=== PATIENT | female | born 1950 | race Caucasian/White ===

== ENCOUNTER 2016-05-14 06:35 | Inpatient (IN) | payer OTHER ==
[~2016-05-14] VITALS: Ht 160 cm; Wt 44.0 kg
[2016-05-14] MEDS ORDERED: IPRATRPIUM/ALBUTEROL 0.5/2.5MG 3 ML NEBU. NEB ONE (07:30)
[2016-05-14] MEDS ORDERED: LEVOFLOXACIN 500 MG TABLET PO ONE (07:30)
[2016-05-14] MEDS ORDERED: methylPREDNISolone SOD SUCC PF 125 MG/2 ML VIAL. IV ONE (07:30)
[2016-05-14] MEDS ORDERED: IV NORMAL SALINE 500ML BAG 500 ML IV ONE (07:30)
[2016-05-14 07:41] LABS: BASO % 1 % (0-3); EOS % 0 % (0-3); HEMATOCRIT 45.4 % (36.0-47.0); HEMOGLOBIN 15.4 g/dL (12.0-15.5); LYMPH % 11 % (24-48); MEAN CORPUSCULAR HEMOGLOBIN 30 pg (25-35); MEAN CORPUSCULAR HGB CONC 34 g/dL (31-37); MEAN CORPUSCULAR VOLUME 89 fL (79-100); MONO % 10 % (0-9); NEUT % 79 % (31-73); PLATELET COUNT 374 x10^3/uL (140-400); RED BLOOD COUNT 5.08 x10^6/uL (3.50-5.40); RED CELL DISTRIBUTION WIDTH 13.2 % (11.5-14.5); WHITE BLOOD COUNT 9.5 x10^3/uL (4.0-11.0)
--- NOTE | 2016-05-14 07:59 | EKG ---
[facility] [address] [place] [address] Test Date: 2016-05-14 Test Time: 07:37:38 Pat Name: REJI NORRIS Department: Room: Gender: F [employer] Supervisor: : 1950 Requested By: KAELYN MOORE Order Number: [id number] Reading MD: Measurements Intervals [place] Rate: 93 P: 64 DE: 136 QRS: 64 QRSD: 84 T: 81 QT: 340 QTc: 425 Interpretive Statements SINUS RHYTHM LEFT ATRIAL ABNORMALITY ABNORMAL ECG RI6.01 No previous ECG available for comparison
--- NOTE | 2016-05-14 08:00 | RAD ---
Portable chest, 05/14/2016: History: Cough, shortness of breath The heart size is relatively small. The lungs appear to be hyperexpanded. COPD is suspected. No acute infiltrate is seen. There is no evidence of pleural fluid. IMPRESSION: No acute cardiopulmonary abnormality is detected.
[2016-05-14 08:15] LABS: CALCIUM 8.9 mg/dL (8.5-10.1); CREATININE 0.5 mg/dL (0.6-1.0); GFR 123.8; POTASSIUM 3.7 mmol/L (3.5-5.1)
[2016-05-14 08:20] LABS: ALBUMIN 3.6 g/dL (3.4-5.0); ALBUMIN/GLOBULIN RATIO 1.2 (1.0-1.7); TOTAL BILIRUBIN 0.2 mg/dL (0.2-1.0); TOTAL PROTEIN 6.7 g/dL (6.4-8.2)
[2016-05-14 08:23] LABS: OBC FLU VALID
[2016-05-14] MEDS ORDERED: OSEL75CA PO (08:35)
--- NOTE | 2016-05-14 08:35 | PHYS DOC ---
Past Medical History Past Medical History: COPD, Depression, Diverticulitis, Hypertension Past Surgical History: Appendectomy, Colectomy, Hysterectomy, Oophorectomy Alcohol Use: None Drug Use: None Adult General Chief Complaint Chief Complaint: SHORTNESS OF BREATH HPI HPI 66-year-old female with history of COPD presents with several day history of cough congestion and body aches fever chills decreased energy and decreased by mouth intake. She has been using her medication at home without any improvement. She states it feels very much like she has bronchitis. She states the cough is largely been unproductive and denies any hemoptysis. [] Review of Systems Review of Systems Constitutional: Denies fever or chills [] Eyes: Denies change in visual acuity, redness, or eye pain [] HENT: Denies nasal congestion or sore throat [] Respiratory: Per history of present illness [] Cardiovascular: No additional information not addressed in HPI [] GI: Denies abdominal pain, nausea, vomiting, bloody stools or diarrhea [] : Denies dysuria or hematuria [] Musculoskeletal: Denies back pain or joint pain [] Integument: Denies rash or skin lesions [] Neurologic: Denies headache, focal weakness or sensory changes [] Endocrine: Denies polyuria or polydipsia [] Current Medications Current Medications Current Medications Medications (Trade) Dose Ordered Sig/Rocky Start Time Stop Time Status Last Admin Dose Admin Albuterol/ Ipratropium (Duoneb) 6 ml 1X ONCE 05/14/16 07:30 05/14/16 07:31 DC 05/14/16 07:38 6 ML Levofloxacin 500 mg 500 mg 1X ONCE 05/14/16 07:30 05/14/16 07:31 DC 05/14/16 07:56 500 MG Methylprednisolone Sodium Succinate (Solu-Medrol 125mg Vial) 125 mg 1X ONCE 05/14/16 07:30 05/14/16 07:31 DC 05/14/16 07:54 125 MG Sodium Chloride (Iv Sodium Chloride 0.9% 500ml Bag) 500 ml @ 0 mls/hr 1X ONCE 05/14/16 07:30 05/14/16 07:31 DC 05/14/16 07:40 500 MLS/HR Sodium Chloride (Iv Sodium Chloride 0.9% 1000ml Bag) 1,000 ml @ 125 mls/hr Q8H 05/14/16 08:52 05/15/16 08:51 05/14/16 10:49 125 MLS/HR Allergies Allergies Allergies Coded Allergies Type Severity Reaction Last Updated Verified Penicillins Allergy Severe 05/14/16 Yes morphine Adverse Reaction Intermediate vomiting 05/14/16 Yes Physical Exam Physical Exam Constitutional: Well developed, well nourished, no acute distress, appears acutely ill. [] HENT: Normocephalic, atraumatic, bilateral external ears normal, oropharynx moist, no oral exudates, nose normal. [] Eyes: PERRLA, EOMI, conjunctiva normal, no discharge. [] Neck: Normal range of motion, no tenderness, supple, no stridor. [] Cardiovascular:Heart rate regular rhythm, no murmur [] Lungs & Thorax: Scattered wheezes throughout both lungs no rales good air movement otherwise [] Abdomen: Bowel sounds normal, soft, no tenderness, no masses, no pulsatile masses. [] Skin: Warm, dry, no erythema, no rash. [] Back: No tenderness, no CVA tenderness. [] Extremities: No tenderness, no cyanosis, no clubbing, ROM intact, no edema. [] Neurologic: Alert and oriented X 3, normal motor function, normal sensory function, no focal deficits noted. [] Psychologic: Affect normal, judgement normal, mood normal. [] Current Patient Data Vital Signs Vital Signs Date Time Temp Pulse Resp B/P Pulse Ox O2 Delivery O2 Flow Rate FiO2 05/14/16 08:44 98 25 123/60 97 Nasal Cannula 2 05/14/16 06:35 97.6 97.6 Lab Values Laboratory Tests Test 05/14/16 06:45 05/14/16 07:41 05/14/16 07:59 White Blood Count 9.5x10^3/uL (4.0-11.0) Red Blood Count 5.08x10^6/uL (3.50-5.40) Hemoglobin 15.4g/dL (12.0-15.5) Hematocrit 45.4% (36.0-47.0) Mean Corpuscular Volume 89fL (79-100) Mean Corpuscular Hemoglobin 30pg (25-35) Mean Corpuscular Hemoglobin Concent 34g/dL (31-37) Red Cell Distribution Width 13.2% (11.5-14.5) Platelet Count 374x10^3/uL (140-400) Neutrophils (%) (Auto) 79% (31-73) H Lymphocytes (%) (Auto) 11% (24-48) L Monocytes (%) (Auto) 10% (0-9) H Eosinophils (%) (Auto) 0% (0-3) Basophils (%) (Auto) 1% (0-3) Neutrophils # (Auto) 7.5x10^3uL (1.8-7.7) Lymphocytes # (Auto) 1.0x10^3/uL (1.0-4.8) Monocytes # (Auto) 1.0x10^3/uL (0.0-1.1) Eosinophils # (Auto) 0.0x10^3/uL (0.0-0.7) Basophils # (Auto) 0.0x10^3/uL (0.0-0.2) Influenza Type A Antigen Positive (NEGATIVE) Influenza Type B Antigen Negative (NEGATIVE) Sodium Level 138mmol/L (136-145) Potassium Level 3.7mmol/L (3.5-5.1) Chloride Level 100mmol/L (98-107) Carbon Dioxide Level 25mmol/L (21-32) Anion Gap 13 (6-14) Blood Urea Nitrogen 21mg/dL (7-20) H Creatinine 0.5mg/dL (0.6-1.0) L Estimated GFR (Cockcroft-Gault) 123.8 BUN/Creatinine Ratio 42 (6-20) H Glucose Level 128mg/dL (70-99) H Calcium Level 8.9mg/dL (8.5-10.1) Total Bilirubin 0.2mg/dL (0.2-1.0) Aspartate Amino Transferase (AST) 29U/L (15-37) Alanine Aminotransferase (ALT) 32U/L (14-59) Alkaline Phosphatase 123U/L (46-116) H Troponin I Quantitative < 0.017ng/mL (0.000-0.055) NG-Gtj-M-Type Natriuretic Peptide 104pg/mL (0-124) Total Protein 6.7g/dL (6.4-8.2) Albumin 3.6g/dL (3.4-5.0) Albumin/Globulin Ratio 1.2 (1.0-1.7) Laboratory Tests 05/14/16 06:45 Laboratory Tests 05/14/16 07:59 EKG EKG EKG: Normal sinus rhythm rate of [address]-T changes [] Radiology/Procedures Radiology/Procedures [] Impressions: PROCEDURE: CHEST AP ONLY Portable chest, 05/14/2016: History: Cough, shortness of breath The heart size is relatively small. The lungs appear to be hyperexpanded. COPD is suspected. No acute infiltrate is seen. There is no evidence of pleural fluid. IMPRESSION: No acute cardiopulmonary abnormality is detected. Course & Med Decision Making Course & Med Decision Making Pertinent Labs and Imaging studies reviewed. (See chart for details) [ED course: Evaluation reveals 66-year-old female with history of COPD who had some wheezing. She was given IV fluids [id number] DuoNeb treatments 125 Solu- Medrol and 500 of Levaquin by mouth. It was noted that her chest x-ray was clear and she was influenza A positive. I will go ahead and start the patient on Tamiflu. I feel she is improved enough at this point to go home. We try to get the patient up and around she became very short of breath and hypoxic. At this time it was determined that the patient would be best suited for hospitalization for [id number] nebulizer breathing treatments and IV steroids. Patient is in agreement with this plan.] Dragon Disclaimer Dragon Disclaimer This electronic medical record was generated, in whole or in part, using a voice recognition dictation system. Departure Departure Impression: Primary Impression: Influenza A Additional Impression: COPD exacerbation Disposition: ADMITTED INPATIENT Admitting Physician: Samara Muir Condition: IMPROVED Referrals: EDGAR GRIGGS MD (PCP) Patient Instructions: Influenza A (H1N1) Additional Instructions: Please follow with your family doctor in the next few days for recheck. Return to the emergency department with any new or concerning symptoms. Please take medications as directed Scripts Oseltamivir Phosphate (Tamiflu)75 Mg Capsule1 Cap PO BID influenza #10 CAP Prov:KAELYN MOORE DO 05/14/16 Problem Qualifiers KAELYN MOORE DO May 14, 2016 08:35
[2016-05-14] MEDS ORDERED: ONDANSETRON PF 4 MG/2 ML VIAL. IV PRN ×2 (09:00→16:30)
--- NOTE | 2016-05-14 09:45 | PDOC ---
PULMONARY PROGRESS NOTES Vitals Vital Signs Date Time Temp Pulse Resp B/P Pulse Ox O2 Delivery O2 Flow Rate FiO2 05/14/16 08:44 98 25 123/60 97 Nasal Cannula 2 05/14/16 06:35 97.6 97.6 Labs Laboratory Tests Test 05/14/16 06:45 05/14/16 07:41 05/14/16 07:59 White Blood Count 9.5x10^3/uL (4.0-11.0) Red Blood Count 5.08x10^6/uL (3.50-5.40) Hemoglobin 15.4g/dL (12.0-15.5) Hematocrit 45.4% (36.0-47.0) Mean Corpuscular Volume 89fL (79-100) Mean Corpuscular Hemoglobin 30pg (25-35) Mean Corpuscular Hemoglobin Concent 34g/dL (31-37) Red Cell Distribution Width 13.2% (11.5-14.5) Platelet Count 374x10^3/uL (140-400) Neutrophils (%) (Auto) 79% (31-73) Lymphocytes (%) (Auto) 11% (24-48) Monocytes (%) (Auto) 10% (0-9) Eosinophils (%) (Auto) 0% (0-3) Basophils (%) (Auto) 1% (0-3) Neutrophils # (Auto) 7.5x10^3uL (1.8-7.7) Lymphocytes # (Auto) 1.0x10^3/uL (1.0-4.8) Monocytes # (Auto) 1.0x10^3/uL (0.0-1.1) Eosinophils # (Auto) 0.0x10^3/uL (0.0-0.7) Basophils # (Auto) 0.0x10^3/uL (0.0-0.2) Influenza Type A Antigen Positive (NEGATIVE) Influenza Type B Antigen Negative (NEGATIVE) Sodium Level 138mmol/L (136-145) Potassium Level 3.7mmol/L (3.5-5.1) Chloride Level 100mmol/L (98-107) Carbon Dioxide Level 25mmol/L (21-32) Anion Gap 13 (6-14) Blood Urea Nitrogen 21mg/dL (7-20) Creatinine 0.5mg/dL (0.6-1.0) Estimated GFR (Cockcroft-Gault) 123.8 BUN/Creatinine Ratio 42 (6-20) Glucose Level 128mg/dL (70-99) Calcium Level 8.9mg/dL (8.5-10.1) Total Bilirubin 0.2mg/dL (0.2-1.0) Aspartate Amino Transf (AST/SGOT) 29U/L (15-37) Alanine Aminotransferase (ALT/SGPT) 32U/L (14-59) Alkaline Phosphatase 123U/L (46-116) Troponin I Quantitative < 0.017ng/mL (0.000-0.055) ER-Eol-L-Type Natriuretic Peptide 104pg/mL (0-124) Total Protein 6.7g/dL (6.4-8.2) Albumin 3.6g/dL (3.4-5.0) Albumin/Globulin Ratio 1.2 (1.0-1.7) Laboratory Tests Test 05/14/16 06:45 05/14/16 07:41 05/14/16 07:59 White Blood Count 9.5x10^3/uL (4.0-11.0) Red Blood Count 5.08x10^6/uL (3.50-5.40) Hemoglobin 15.4g/dL (12.0-15.5) Hematocrit 45.4% (36.0-47.0) Mean Corpuscular Volume 89fL (79-100) Mean Corpuscular Hemoglobin 30pg (25-35) Mean Corpuscular Hemoglobin Concent 34g/dL (31-37) Red Cell Distribution Width 13.2% (11.5-14.5) Platelet Count 374x10^3/uL (140-400) Neutrophils (%) (Auto) 79% (31-73) Lymphocytes (%) (Auto) 11% (24-48) Monocytes (%) (Auto) 10% (0-9) Eosinophils (%) (Auto) 0% (0-3) Basophils (%) (Auto) 1% (0-3) Neutrophils # (Auto) 7.5x10^3uL (1.8-7.7) Lymphocytes # (Auto) 1.0x10^3/uL (1.0-4.8) Monocytes # (Auto) 1.0x10^3/uL (0.0-1.1) Eosinophils # (Auto) 0.0x10^3/uL (0.0-0.7) Basophils # (Auto) 0.0x10^3/uL (0.0-0.2) Influenza Type A Antigen Positive (NEGATIVE) Influenza Type B Antigen Negative (NEGATIVE) Sodium Level 138mmol/L (136-145) Potassium Level 3.7mmol/L (3.5-5.1) Chloride Level 100mmol/L (98-107) Carbon Dioxide Level 25mmol/L (21-32) Anion Gap 13 (6-14) Blood Urea Nitrogen 21mg/dL (7-20) Creatinine 0.5mg/dL (0.6-1.0) Estimated GFR (Cockcroft-Gault) 123.8 BUN/Creatinine Ratio 42 (6-20) Glucose Level 128mg/dL (70-99) Calcium Level 8.9mg/dL (8.5-10.1) Total Bilirubin 0.2mg/dL (0.2-1.0) Aspartate Amino Transf (AST/SGOT) 29U/L (15-37) Alanine Aminotransferase (ALT/SGPT) 32U/L (14-59) Alkaline Phosphatase 123U/L (46-116) Troponin I Quantitative < 0.017ng/mL (0.000-0.055) YM-Hxn-J-Type Natriuretic Peptide 104pg/mL (0-124) Total Protein 6.7g/dL (6.4-8.2) Albumin 3.6g/dL (3.4-5.0) Albumin/Globulin Ratio 1.2 (1.0-1.7) Medications Active Scripts Medications Dose Route/Sig Days Date Category Tamiflu (Oseltamivir Phosphate) 75 Mg Capsule 1 Cap PO BID 05/14/16 Rx Impression . [id number] agree wtih current rx see oders influenza resp failure thanks SIDNEY BAKER MD May 14, 2016 09:45
[2016-05-14] MEDS ORDERED: VENL37.5 PO (10:05)
[2016-05-14] MEDS ORDERED: LISI10TA2 PO (10:05)
[2016-05-14] MEDS: IV NORMAL SALINE 1000ML BAG 1,000 ML IV SCH ×2 (10:49→16:28)
[2016-05-14] MEDS: IPRATRPIUM/ALBUTEROL 0.5/2.5MG 3 ML NEBU. NEB SCH ×3 (11:11→21:23)
[2016-05-14 13:30] VITALS: BP 151/79
[2016-05-14 13:58] VITALS: BP 151/79
[2016-05-14 15:00] VITALS: BP 151/79
[2016-05-14] MEDS: ACETAMINOPHEN 325 MG TABLET. PO PRN (16:10)
--- NOTE | 2016-05-14 16:25 | PDOC1 ---
History and Physical Date of Admission Date of Admission 05/14/16 Identification/Chief Complaint Chief Complaint sob Problems: Source Source: Chart review, Patient History of Present Illness History of Present Illness HPI HPI 66-year-old female with history of COPD, no home o2, comes for sob Pt has been coughing, sob, body ache, fever, chills, for 1 week. didnot get flu shot. +FLU A in ER. 1PPD Past Medical History Past Medical History copd , htn Past Surgical History Past Surgical History : Appendectomy, Colectomy, Hysterectomy, Oophorectomy Family History Family History: No Significant Social History Smoke: 1 pack per day ALCOHOL: social Drugs: None Current Problem List Problem List Problems Medical Problems: (1) COPD exacerbation Status: Acute (2) CVA (cerebral vascular accident) Status: Acute (3) Influenza A Status: Acute Current Medications Current Medications Current Medications Medications (Trade) Dose Ordered Sig/Rocky Start Time Stop Time Status Last Admin Dose Admin Acetaminophen (Tylenol) 650 mg PRN Q6HRS PRN 05/14/16 16:00 05/14/16 16:10 650 MG Albuterol/ Ipratropium (Duoneb) 3 ml RTQID 05/14/16 12:00 05/15/16 11:59 05/14/16 15:36 3 ML Levofloxacin (Levaquin) 500 mg 1X ONCE 05/14/16 07:30 05/14/16 07:31 DC 05/14/16 07:56 500 MG Methylprednisolone Sodium Succinate (Solu-Medrol 125mg Vial) 125 mg 1X ONCE 05/14/16 07:30 05/14/16 07:31 DC 05/14/16 07:54 125 MG Ondansetron HCl 4 mg 4 mg PRN Q8HRS PRN 05/14/16 09:00 05/15/16 08:59 Sodium Chloride (Iv Sodium Chloride 0.9% 500ml Bag) 500 ml @ 0 mls/hr 1X ONCE 05/14/16 07:30 05/14/16 07:31 DC 05/14/16 07:40 500 MLS/HR Sodium Chloride (Iv Sodium Chloride 0.9% 1000ml Bag) 1,000 ml @ 125 mls/hr Q8H 05/14/16 08:52 05/15/16 08:51 05/14/16 10:49 125 MLS/HR Allergies Allergies Allergies Coded Allergies Type Severity Reaction Last Updated Verified Penicillins Allergy Severe 05/14/16 Yes morphine Adverse Reaction Intermediate vomiting 05/14/16 Yes ROS Review of System CONSTITUTIONAL: No fever or chills EYES: No recent changes SKIN: No rash or itching CARDIOVASCULAR: No chest pain, syncope, palpitations, or edema RESPIRATORY: No SOB or cough GASTROINTESTINAL: No nausea, vomiting or abdominal pain NEUROLOGICAL: No headaches or weakness ENDOCRINE: No cold or heat intolerance GENITOURINARY: No urgency or frequency of urination MUSCULOSKELETAL: No back pain or joint pain LYMPHATICS: No enlarged lymph nodes PSYCHIATRIC: No anxiety or depression Physical Exam Physical Exam GEN.: No apparent distress. Alert and oriented. HEENT: Head is normocephalic, atraumatic NECK: Supple. LUNGS: bl mild wheezing HEART: RRR, S1, S2 present. Peripheral pulses intact ABDOMEN: Soft, nontender. Positive bowel sounds. EXTREMITIES: Without any cyanosis. NEUROLOGIC: Normal speech, normal tone PSYCHIATRIC: Normal affect, normal mood. SKIN: No ulcerations Vitals Vitals Vital Signs Date Time Temp Pulse Resp B/P Pulse Ox O2 Delivery O2 Flow Rate FiO2 05/14/16 15:59 Nasal Cannula 2.0 05/14/16 15:00 99.1 98 20 151/79 93 99.1 Labs Labs Laboratory Tests Test 05/14/16 06:45 05/14/16 07:41 05/14/16 07:59 White Blood Count 9.5x10^3/uL (4.0-11.0) Red Blood Count 5.08x10^6/uL (3.50-5.40) Hemoglobin 15.4g/dL (12.0-15.5) Hematocrit 45.4% (36.0-47.0) Mean Corpuscular Volume 89fL (79-100) Mean Corpuscular Hemoglobin 30pg (25-35) Mean Corpuscular Hemoglobin Concent 34g/dL (31-37) Red Cell Distribution Width 13.2% (11.5-14.5) Platelet Count 374x10^3/uL (140-400) Neutrophils (%) (Auto) 79% (31-73) Lymphocytes (%) (Auto) 11% (24-48) Monocytes (%) (Auto) 10% (0-9) Eosinophils (%) (Auto) 0% (0-3) Basophils (%) (Auto) 1% (0-3) Neutrophils # (Auto) 7.5x10^3uL (1.8-7.7) Lymphocytes # (Auto) 1.0x10^3/uL (1.0-4.8) Monocytes # (Auto) 1.0x10^3/uL (0.0-1.1) Eosinophils # (Auto) 0.0x10^3/uL (0.0-0.7) Basophils # (Auto) 0.0x10^3/uL (0.0-0.2) Influenza Type A Antigen Positive (NEGATIVE) Influenza Type B Antigen Negative (NEGATIVE) Sodium Level 138mmol/L (136-145) Potassium Level 3.7mmol/L (3.5-5.1) Chloride Level 100mmol/L (98-107) Carbon Dioxide Level 25mmol/L (21-32) Anion Gap 13 (6-14) Blood Urea Nitrogen 21mg/dL (7-20) Creatinine 0.5mg/dL (0.6-1.0) Estimated GFR (Cockcroft-Gault) 123.8 BUN/Creatinine Ratio 42 (6-20) Glucose Level 128mg/dL (70-99) Calcium Level 8.9mg/dL (8.5-10.1) Total Bilirubin 0.2mg/dL (0.2-1.0) Aspartate Amino Transf (AST/SGOT) 29U/L (15-37) Alanine Aminotransferase (ALT/SGPT) 32U/L (14-59) Alkaline Phosphatase 123U/L (46-116) Troponin I Quantitative < 0.017ng/mL (0.000-0.055) OY-Gkp-K-Type Natriuretic Peptide 104pg/mL (0-124) Total Protein 6.7g/dL (6.4-8.2) Albumin 3.6g/dL (3.4-5.0) Albumin/Globulin Ratio 1.2 (1.0-1.7) Laboratory Tests Test 05/14/16 06:45 05/14/16 07:41 05/14/16 07:59 White Blood Count 9.5x10^3/uL (4.0-11.0) Red Blood Count 5.08x10^6/uL (3.50-5.40) Hemoglobin 15.4g/dL (12.0-15.5) Hematocrit 45.4% (36.0-47.0) Mean Corpuscular Volume 89fL (79-100) Mean Corpuscular Hemoglobin 30pg (25-35) Mean Corpuscular Hemoglobin Concent 34g/dL (31-37) Red Cell Distribution Width 13.2% (11.5-14.5) Platelet Count 374x10^3/uL (140-400) Neutrophils (%) (Auto) 79% (31-73) Lymphocytes (%) (Auto) 11% (24-48) Monocytes (%) (Auto) 10% (0-9) Eosinophils (%) (Auto) 0% (0-3) Basophils (%) (Auto) 1% (0-3) Neutrophils # (Auto) 7.5x10^3uL (1.8-7.7) Lymphocytes # (Auto) 1.0x10^3/uL (1.0-4.8) Monocytes # (Auto) 1.0x10^3/uL (0.0-1.1) Eosinophils # (Auto) 0.0x10^3/uL (0.0-0.7) Basophils # (Auto) 0.0x10^3/uL (0.0-0.2) Influenza Type A Antigen Positive (NEGATIVE) Influenza Type B Antigen Negative (NEGATIVE) Sodium Level 138mmol/L (136-145) Potassium Level 3.7mmol/L (3.5-5.1) Chloride Level 100mmol/L (98-107) Carbon Dioxide Level 25mmol/L (21-32) Anion Gap 13 (6-14) Blood Urea Nitrogen 21mg/dL (7-20) Creatinine 0.5mg/dL (0.6-1.0) Estimated GFR (Cockcroft-Gault) 123.8 BUN/Creatinine Ratio 42 (6-20) Glucose Level 128mg/dL (70-99) Calcium Level 8.9mg/dL (8.5-10.1) Total Bilirubin 0.2mg/dL (0.2-1.0) Aspartate Amino Transf (AST/SGOT) 29U/L (15-37) Alanine Aminotransferase (ALT/SGPT) 32U/L (14-59) Alkaline Phosphatase 123U/L (46-116) Troponin I Quantitative < 0.017ng/mL (0.000-0.055) IJ-Ycq-N-Type Natriuretic Peptide 104pg/mL (0-124) Total Protein 6.7g/dL (6.4-8.2) Albumin 3.6g/dL (3.4-5.0) Albumin/Globulin Ratio 1.2 (1.0-1.7) VTE Prophylaxis Ordered VTE Prophylaxis Devices: Yes VTE Pharmacological Prophylaxi: Yes Assessment/Plan Assessment/Plan 1. dyspnea 2. acute resp failure with copd and flu 3. flu a 4. COPD exacerbation 5. HTN 6. depression plan: 1. tamiflu 2. fu with pulm 3. duoneb solumedrol 4. dvt, gi ppx ROSA SCHWARTZ MD May 14, 2016 16:25
[2016-05-14] MEDS ORDERED: ENOXAPARIN 40 MG/0.4 ML DISP.SYRIN. SQ SCH (16:30)
[2016-05-14] MEDS ORDERED: ALBUTEROL SULFATE 2.5 MG/3 ML NEBU. NEB PRN (16:30)
--- NOTE | 2016-05-14 16:50 | ACF ---
Admission Forms Criteria COPD Clinical Indications for Admission to Inpatient Care (Place 'X' for any and all applicable criteria): Admission is indicated for ANY ONE of the following (1)(2)(3): [X]I. Acute exacerbation by high-risk comorbidity (e.g., pneumonia, dysrhythmia, heart failure, pleural effusion, pneumothorax) or severe underlying COPD (e.g., steroid dependent) [ ]II. Inpatient admission required rather than observation care (see Chronic Obstructive Pulmonary Disease: Observation Care) because of ANY ONE of the following: [ ]a) New or pre-existing signs or symptoms of COPD (eg, dyspnea or Tachypnea at rest or with minimal activity) that persist despite outpatient and observation care treatment [ ]b) New-onset hypoxemia (room air SaO2 less than 90%, PO2 less than 60 mm Hg (8.0 kPa)) that persists despite outpatient and observation care treatment [ ]c) Worsening of pre-existing hypoxemia (eg, new or increased requirement for supplemental oxygen to maintain oxygenation at baseline level) that persists despite outpatient and observation care treatment, with oxygen treatment needs performable only in acute inpatient setting [ ]d) Hypercarbia (PCO2 greater than 40 mm Hg (5.3 kPa))-induced respiratory acidosis (pH less than 7.35) that persists despite outpatient and observation care treatment [ ]e) Supplemental oxygen or respiratory treatments for over 24 hours that are performable only in acute inpatient setting [ ]f) Chest tube placement with active evacuation (e.g., suction, drainage) (5) [ ]g) Other condition, treatment or monitoring requiring inpatient admission [ ]III. Planned invasive surgical or diagnostic procedures requiring acute- care hospitalization [ ]IV. Acute respiratory failure (e.g., uncompensated hypercarbia, severe hypoxemia) [ ]V. Severe comorbid condition (e.g., severe steroid myopathy, acute vertebral fracture) that has acutely worsened pulmonary function [ ]. Confusion state, lethargy, obtundation, stupor or coma Extended stay beyond goal length of stay may be needed for (31)(32): [ ]a ) Respiratory Failure. [ ]b) Severe or persisting hypoxemia or hypercarbia [ ]c) Severe or persistent dyspnea [ ]d) Comorbidities (e.g. chronic heart failure, atrial fibrillation with rapid response, pneumonia) [ ]e) Malnutrition The original [facility] content created by [facility] has been revised. The portions of the content which have been revised are identified through the use of italic text or in bold, and [facility] has neither reviewed nor approved the modified material. All other unmodified content is copyright [facility]. Please see references footnoted in the original [facility] edition 2016 Admission Criteria Met?: Yes NICK MORALES. May 14, 2016 16:50
[2016-05-14 19:00] VITALS: BP 109/61
[2016-05-14] MEDS: methylPREDNISolone SOD SUCC PF 40 MG/ML VIAL. IV SCH (20:16)
[2016-05-14] MEDS: OSELTAMIVIR 30 MG CAPSULE PO SCH (20:16)
[2016-05-14] MEDS: GUAIFENESIN 200 MG/10 ML LIQUID. PO PRN (20:16)
[2016-05-14] MEDS: FAMOTIDINE 20 MG TABLET. PO SCH (20:17)
[2016-05-14] MEDS: ENOXAPARIN 30 MG/0.3 ML DISP.SYRIN. SQ SCH (20:17)
[2016-05-14] MEDS: DIPHENHYDRAMINE HCL 25 MG CAPSULE PO PRN (22:07)
[2016-05-14 22:46] VITALS: BP 120/60
[2016-05-15] VITALS (7 sets, daily range): BP systolic 95–136; BP diastolic 46–73
[2016-05-15] MEDS: IV NORMAL SALINE 1000ML BAG 1,000 ML IV SCH (00:52)
--- NOTE | 2016-05-15 04:56 | CONS ---
DATE OF CONSULTATION: 05/14/2016 ATTENDING PHYSICIAN: Dr. Muir. REASON FOR CONSULTATION: The patient seen in pulmonary consultation at the request of Dr. Muir for acute respiratory failure. HISTORY OF PRESENT ILLNESS: The patient is a 66-year-old that has been sick on and off all weeklong high temperatures presented because "she could not breathe and was tested positive for influenza A." She had a chest x-ray which was essentially unremarkable. She has a cough mostly nonproductive, body aches. She smokes, but could not smoke this week as a consequence of her dyspnea. PAST MEDICAL HISTORY: COPD. She experiences acute exacerbation approximately twice a year, hypertension. PAST SURGICAL HISTORY: Status post appendectomy, hysterectomy, colectomy, oophorectomy. FAMILY HISTORY: Positive for lung cancer. SOCIAL HISTORY: She smokes on a daily basis. Denies any alcohol intake. REVIEW OF SYSTEMS: CONSTITUTIONAL: Subjective fever and chills. EYES: No changes in visual acuity. HEENT: No nasal congestion, no sore throat. RESPIRATORY: As indicated above. CARDIOVASCULAR: Some chest pain or pressure with cough. GASTROINTESTINAL: No nausea, vomiting, diarrhea. GENITOURINARY: No dysuria or frequency. MUSCULOSKELETAL: Muscle aches and joint pain. SKIN: No new skin rashes. NEUROLOGIC: No headaches, diplopia or blurred vision. ALLERGIES: PENICILLIN AND MORPHINE. PHYSICAL EXAMINATION: VITAL SIGNS: Stable. O2 saturation was greater than 92%, currently on 2 liters. HEENT: Eyes, the sclerae were nonicteric. NECK: Jugular venous distention was not elevated. No lymphadenopathy. CHEST: Full expansion. LUNGS: Very poor airway flow with mild expiratory wheeze. CARDIOVASCULAR: Regular rate and rhythm with S1, S2, no S3. ABDOMEN: Soft, nontender, nondistended. EXTREMITIES: No clubbing, cyanosis or edema. NEUROLOGIC: The patient was awake, alert, following commands. A detailed neuro exam was not performed. VACCINATION HISTORY: The patient has not been vaccinated against the flu. Chest x-ray reviewed, no acute cardiopulmonary process. LABORATORY DATA: White count was normal. Hemoglobin and hematocrit were noted. Electrolytes were noted. BUN is elevated. IMPRESSION: 1. Acute respiratory failure secondary to acute viral bronchitis. 2. Positive influenza A. 3. Fever and body aches secondary to above. 4. Tobacco dependence. 5. Family history of lung cancer. PLAN: We will continue current support with oxygen supplementation, IV fluids and steroids. No need for antibiotics. Continue Tamiflu. Obtain CT chest: The patient instructed on the importance to discontinue her tobacco use. I do appreciate the privilege in sharing in the patient's care. SIDNEY BAKER MD DR: ELIAN/keyona JOB#: [id number] / [id number]
[2016-05-15 07:07] LABS: BASO % 0 % (0-3); EOS % 0 % (0-3); LYMPH # 0.6 x10^3/uL (1.0-4.8); LYMPH % 13 % (24-48); MEAN CORPUSCULAR HEMOGLOBIN 30 pg (25-35); MEAN CORPUSCULAR HGB CONC 34 g/dL (31-37); MEAN CORPUSCULAR VOLUME 90 fL (79-100); MONO % 12 % (0-9); NEUT % 76 % (31-73); PLATELET COUNT 326 x10^3/uL (140-400); RED BLOOD COUNT 4.34 x10^6/uL (3.50-5.40); RED CELL DISTRIBUTION WIDTH 13.5 % (11.5-14.5); WHITE BLOOD COUNT 4.8 x10^3/uL (4.0-11.0)
[2016-05-15 07:08] LABS: CALCIUM 8.8 mg/dL (8.5-10.1); CREATININE 0.5 mg/dL (0.6-1.0); GFR 123.8; POTASSIUM 4.4 mmol/L (3.5-5.1)
[2016-05-15] MEDS: IPRATRPIUM/ALBUTEROL 0.5/2.5MG 3 ML NEBU. NEB SCH ×4 (07:41→20:30)
[2016-05-15] MEDS: VENLAFAXINE XR 37.5 MG CAP.ER.24H. PO SCH (08:50)
[2016-05-15] MEDS: OSELTAMIVIR 30 MG CAPSULE PO SCH ×2 (08:51→20:39)
[2016-05-15] MEDS: ACETAMINOPHEN 325 MG TABLET. PO PRN ×2 (08:51→16:42)
[2016-05-15] MEDS: methylPREDNISolone SOD SUCC PF 40 MG/ML VIAL. IV SCH ×2 (08:54→20:40)
[2016-05-15] MEDS: LISINOPRIL 10 MG TABLET PO SCH (08:55)
[2016-05-15] MEDS ORDERED: INFLUENZA VAX SCREEN BY RX. MC PRN (11:15)
--- NOTE | 2016-05-15 11:34 | RAD ---
CT of the chest without contrast, 05/15/2016: History: Cough, shortness of breath, fever Noncontrast scans were obtained as requested. There are scattered calcific plaques involving the thoracic aorta without evidence of aneurysm. Several coronary artery calcifications are noted. The heart is not enlarged. No mediastinal adenopathy is seen. There is a 2 mm noncalcified nodule in the lateral aspect of the right upper lobe as seen on image 20 of series #2. A 3.8 mm noncalcified nodular parenchymal opacity is seen medially in the right upper lobe on image 28 of series #2. There is blurring of some of these images, particularly in the lower chest due to patient respiratory motion artifact. A small subpleural linear opacity in the lateral aspect of the left base is compatible with a scar. No significant pulmonary consolidation is seen. There is no evidence of pleural fluid. IMPRESSION: 1. Calcific plaquing of the aorta and coronary arteries. 2. No CT evidence of pneumonia. 3. Tiny noncalcified right upper lobe pulmonary opacities may be scars, however, given the patient's smoking history, CT follow-up is suggested to exclude a neoplastic etiology. PQRS Compliance Statement: One or more of the following individualized dose reduction techniques were utilized for this examination: 1. Automated exposure control 2. Adjustment of the mA and/or kV according to patient size 3. Use of iterative reconstruction technique
--- NOTE | 2016-05-15 12:43 | PDOC ---
PROGRESS NOTES Chief Complaint Chief Complaint 1. dyspnea 2. acute resp failure with copd and flu 3. flu a 4. COPD exacerbation 5. HTN 6. depression History of Present Illness History of Present Illness Better BUt still SOA at short walks Swears she wont smoke again Worried asks if she will get better Tight air entry, wheezing appreciable but better than yesterday CHest CT shows 2 sub cm lung nodule RML MOther of lung CA at age 66 (smoker too) PLAN: Add nicotine patch cont rest of meds Interval CT scan maybe 6 mos time ff up this nodule in this smoker Add pT/OT Heavy counselling done, 30 mins in room Vitals Vitals Vital Signs Date Time Temp Pulse Resp B/P Pulse Ox O2 Delivery O2 Flow Rate FiO2 05/15/16 11:13 Nasal Cannula 1.0 05/15/16 11:00 98.2 84 18 136/73 97 98.2 Physical Exam General: Alert, Oriented X3, Cooperative Heart: Regular rate Lungs: Wheezing, Other (tight air entry) Extremities: No clubbing Skin: No rashes Labs LABS Laboratory Tests Test 05/15/16 06:00 White Blood Count 4.8x10^3/uL (4.0-11.0) Red Blood Count 4.34x10^6/uL (3.50-5.40) Hemoglobin 13.0g/dL (12.0-15.5) Hematocrit 39.0% (36.0-47.0) Mean Corpuscular Volume 90fL (79-100) Mean Corpuscular Hemoglobin 30pg (25-35) Mean Corpuscular Hemoglobin Concent 34g/dL (31-37) Red Cell Distribution Width 13.5% (11.5-14.5) Platelet Count 326x10^3/uL (140-400) Neutrophils (%) (Auto) 76% (31-73) Lymphocytes (%) (Auto) 13% (24-48) Monocytes (%) (Auto) 12% (0-9) Eosinophils (%) (Auto) 0% (0-3) Basophils (%) (Auto) 0% (0-3) Neutrophils # (Auto) 3.6x10^3uL (1.8-7.7) Lymphocytes # (Auto) 0.6x10^3/uL (1.0-4.8) Monocytes # (Auto) 0.6x10^3/uL (0.0-1.1) Eosinophils # (Auto) 0.0x10^3/uL (0.0-0.7) Basophils # (Auto) 0.0x10^3/uL (0.0-0.2) Sodium Level 142mmol/L (136-145) Potassium Level 4.4mmol/L (3.5-5.1) Chloride Level 106mmol/L (98-107) Carbon Dioxide Level 29mmol/L (21-32) Anion Gap 7 (6-14) Blood Urea Nitrogen 13mg/dL (7-20) Creatinine 0.5mg/dL (0.6-1.0) Estimated GFR (Cockcroft-Gault) 123.8 Glucose Level 115mg/dL (70-99) Calcium Level 8.8mg/dL (8.5-10.1) Review of Systems Review of Systems soa, no cp, coughing dry Assessment and Plan Assessmemt and Plan Problems Medical Problems: (1) COPD exacerbation Status: Acute (2) CVA (cerebral vascular accident) Status: Acute (3) Influenza A Status: Acute Problems: Comment Review of Relevant I have reviewed the following items juliana (where applicable) has been applied. Labs Laboratory Tests Test 05/14/16 06:45 05/14/16 07:41 05/14/16 07:59 05/15/16 06:00 White Blood Count 9.5x10^3/uL (4.0-11.0) 4.8x10^3/uL (4.0-11.0) Red Blood Count 5.08x10^6/uL (3.50-5.40) 4.34x10^6/uL (3.50-5.40) Hemoglobin 15.4g/dL (12.0-15.5) 13.0g/dL (12.0-15.5) Hematocrit 45.4% (36.0-47.0) 39.0% (36.0-47.0) Mean Corpuscular Volume 89fL (79-100) 90fL (79-100) Mean Corpuscular Hemoglobin 30pg (25-35) 30pg (25-35) Mean Corpuscular Hemoglobin Concent 34g/dL (31-37) 34g/dL (31-37) Red Cell Distribution Width 13.2% (11.5-14.5) 13.5% (11.5-14.5) Platelet Count 374x10^3/uL (140-400) 326x10^3/uL (140-400) Neutrophils (%) (Auto) 79% (31-73) 76% (31-73) Lymphocytes (%) (Auto) 11% (24-48) 13% (24-48) Monocytes (%) (Auto) 10% (0-9) 12% (0-9) Eosinophils (%) (Auto) 0% (0-3) 0% (0-3) Basophils (%) (Auto) 1% (0-3) 0% (0-3) Neutrophils # (Auto) 7.5x10^3uL (1.8-7.7) 3.6x10^3uL (1.8-7.7) Lymphocytes # (Auto) 1.0x10^3/uL (1.0-4.8) 0.6x10^3/uL (1.0-4.8) Monocytes # (Auto) 1.0x10^3/uL (0.0-1.1) 0.6x10^3/uL (0.0-1.1) Eosinophils # (Auto) 0.0x10^3/uL (0.0-0.7) 0.0x10^3/uL (0.0-0.7) Basophils # (Auto) 0.0x10^3/uL (0.0-0.2) 0.0x10^3/uL (0.0-0.2) Influenza Type A Antigen Positive (NEGATIVE) Influenza Type B Antigen Negative (NEGATIVE) Sodium Level 138mmol/L (136-145) 142mmol/L (136-145) Potassium Level 3.7mmol/L (3.5-5.1) 4.4mmol/L (3.5-5.1) Chloride Level 100mmol/L (98-107) 106mmol/L (98-107) Carbon Dioxide Level 25mmol/L (21-32) 29mmol/L (21-32) Anion Gap 13 (6-14) 7 (6-14) Blood Urea Nitrogen 21mg/dL (7-20) 13mg/dL (7-20) Creatinine 0.5mg/dL (0.6-1.0) 0.5mg/dL (0.6-1.0) Estimated GFR (Cockcroft-Gault) 123.8 123.8 BUN/Creatinine Ratio 42 (6-20) Glucose Level 128mg/dL (70-99) 115mg/dL (70-99) Calcium Level 8.9mg/dL (8.5-10.1) 8.8mg/dL (8.5-10.1) Total Bilirubin 0.2mg/dL (0.2-1.0) Aspartate Amino Transf (AST/SGOT) 29U/L (15-37) Alanine Aminotransferase (ALT/SGPT) 32U/L (14-59) Alkaline Phosphatase 123U/L (46-116) Troponin I Quantitative < 0.017ng/mL (0.000-0.055) VT-Hgr-J-Type Natriuretic Peptide 104pg/mL (0-124) Total Protein 6.7g/dL (6.4-8.2) Albumin 3.6g/dL (3.4-5.0) Albumin/Globulin Ratio 1.2 (1.0-1.7) Laboratory Tests Test 05/15/16 06:00 White Blood Count 4.8x10^3/uL (4.0-11.0) Red Blood Count 4.34x10^6/uL (3.50-5.40) Hemoglobin 13.0g/dL (12.0-15.5) Hematocrit 39.0% (36.0-47.0) Mean Corpuscular Volume 90fL (79-100) Mean Corpuscular Hemoglobin 30pg (25-35) Mean Corpuscular Hemoglobin Concent 34g/dL (31-37) Red Cell Distribution Width 13.5% (11.5-14.5) Platelet Count 326x10^3/uL (140-400) Neutrophils (%) (Auto) 76% (31-73) Lymphocytes (%) (Auto) 13% (24-48) Monocytes (%) (Auto) 12% (0-9) Eosinophils (%) (Auto) 0% (0-3) Basophils (%) (Auto) 0% (0-3) Neutrophils # (Auto) 3.6x10^3uL (1.8-7.7) Lymphocytes # (Auto) 0.6x10^3/uL (1.0-4.8) Monocytes # (Auto) 0.6x10^3/uL (0.0-1.1) Eosinophils # (Auto) 0.0x10^3/uL (0.0-0.7) Basophils # (Auto) 0.0x10^3/uL (0.0-0.2) Sodium Level 142mmol/L (136-145) Potassium Level 4.4mmol/L (3.5-5.1) Chloride Level 106mmol/L (98-107) Carbon Dioxide Level 29mmol/L (21-32) Anion Gap 7 (6-14) Blood Urea Nitrogen 13mg/dL (7-20) Creatinine 0.5mg/dL (0.6-1.0) Estimated GFR (Cockcroft-Gault) 123.8 Glucose Level 115mg/dL (70-99) Calcium Level 8.8mg/dL (8.5-10.1) Microbiology 05/14/16 Blood Culture - Preliminary, Resulted NO GROWTH AFTER 1 DAY Medications Current Medications Sodium Chloride (Iv Sodium Chloride 0.9% 500ml Bag) 500 ml @ 0 mls/hr 1X ONCE IV Last administered on 05/14/16 07:40; Start 05/14/16 at 07:30; Stop at 07:31; Status DC Albuterol/ Ipratropium (Duoneb) 6 ml 1X ONCE NEB Last administered on 07:38; Start 05/14/16 at 07:30; Stop 05/14/16 at 07:31; Status DC Methylprednisolone Sodium Succinate (Solu-Medrol 125mg Vial) 125 mg 1X ONCE IV Last administered on 05/14/16 07:54; Start 05/14/16 at 07:30; Stop 05/14/16 at 07:31; Status DC Levofloxacin (Levaquin) 500 mg 1X ONCE PO Last administered on 05/14/16 07:56 ; Start 05/14/16 at 07:30; Stop 05/14/16 at 07:31; Status DC Ondansetron HCl 4 mg 4 mg PRN Q8HRS PRN IV NAUSEA/VOMITING; Start 05/14/16 at 09:00; Stop 05/14/16 at 16:41; Status DC Sodium Chloride (Iv Sodium Chloride 0.9% 1000ml Bag) 1,000 ml @ 125 mls/hr Q8H IV Last administered on 05/15/16 00:52; Start 05/14/16 at 08:52; Stop at 08:51; Status DC Albuterol/ Ipratropium (Duoneb) 3 ml RTQID NEB Last administered on 05/14/16 15:36; Start 05/14/16 at 12:00; Stop 05/14/16 at 16:41; Status DC Acetaminophen (Tylenol) 650 mg PRN Q6HRS PRN PO MILD PAIN / TEMP Last administered on 05/15/16 08:51; Start 05/14/16 at 16:00 Lisinopril (Prinivil) 10 mg DAILY PO Last administered on 05/15/16 08:55; Start 05/15/16 at 09:00 Oseltamivir Phosphate (Tamiflu) 30 mg BID PO Last administered on 05/15/16 08: 51; Start 05/14/16 at 21:00; Stop 05/19/16 at 20:59 Venlafaxine HCl (Effexor Xr) 37.5 mg DAILY PO Last administered on 05/15/16 08 :50; Start 05/15/16 at 09:00 Methylprednisolone Sodium Succinate (Solu-Medrol 40mg Vial) 40 mg Q12HR IV Last administered on 05/15/16 08:54; Start 05/14/16 at 21:00 Albuterol/ Ipratropium (Duoneb) 3 ml RTQID NEB Last administered on 05/15/16 11:12; Start 05/14/16 at 20:00 Albuterol Sulfate (Ventolin Neb Soln) 2.5 mg PRN Q4HRS PRN NEB SHORTNESS OF BREATH; Start 05/14/16 at 16:30 Acetaminophen (Tylenol) 650 mg PRN Q6HRS PRN PO MILD PAIN / TEMP; Start at 16:30 Ondansetron HCl (Zofran) 4 mg PRN Q6HRS PRN IV NAUSEA/VOMITING; Start 05/14/16 at 16:30 Enoxaparin Sodium (Lovenox 40mg Syringe) 30 mg Q24H SQ ; Start 05/14/16 at 16:30 ; Stop 05/14/16 at 16:30; Status DC Famotidine (Pepcid) 20 mg QHS PO Last administered on 05/14/16 20:17; Start at 21:00 Guaifenesin (Robitussin) 200 mg PRN Q4HRS PRN PO COUGH Last administered on 20:16; Start 05/14/16 at 16:30 Enoxaparin Sodium (Lovenox 30mg Syringe) 30 mg Q24H SQ ; Start 05/14/16 at 21:00 Diphenhydramine HCl (Benadryl) 25 mg PRN QHS PRN PO INSOMNIA Last administered on 05/14/16 22:07; Start 05/14/16 at 22:00 Info (Do NOT chart on this placeholder) 1 each PRN 1X PRN MC SEE COMMENTS; Start 05/15/16 at 11:15; Status UNV Influenza Virus Vaccine Quadrival (Fluarix Quad [id number] Syringe) 0.5 ml ONCE ONCE VAX IM ; Start 05/15/16 at 13:00; Stop 05/15/16 at 13:01 Active Scripts Active Tamiflu (Oseltamivir Phosphate) 75 Mg Capsule 1 Cap PO BID Reported Lisinopril 10 Mg Tablet Unknown Dose PO DAILY Effexor Xr (Venlafaxine Hcl) 37.5 Mg Cap.er.24h Unknown Dose PO DAILY Vitals/I & O Vital Sign - Last 24 Hours 05/14/16 05/14/16 05/14/16 05/14/16 12:44 12:44 13:30 13:58 Temp 99.1 99.1 99.1 99.1 Pulse 100 96 98 98 Resp 24 20 B/P 136/65 136/65 151/79 151/79 Pulse Ox 96 96 93 93 O2 Delivery Nasal Cannula Nasal Cannula Nasal Cannula Nasal Cannula O2 Flow Rate 2 2 2.0 2.0 05/14/16 05/14/16 05/14/16 05/14/16 15:00 15:36 15:59 19:00 Temp 99.1 99.1 99.1 99.1 Pulse 98 91 Resp 20 20 B/P 151/79 109/61 Pulse Ox 93 94 O2 Delivery Nasal Cannula Room Air Nasal Cannula Room Air O2 Flow Rate 2.0 2.0 05/14/16 05/14/16 05/14/16 05/15/16 20:00 21:23 22:46 03:00 Temp 97.7 98.1 97.7 98.1 Pulse 79 71 Resp 19 18 B/P 120/60 110/60 Pulse Ox 92 99 98 O2 Delivery Nasal Cannula Room Air Nasal Cannula Nasal Cannula O2 Flow Rate 2.0 2.0 2.0 05/15/16 05/15/16 05/15/16 05/15/16 07:00 07:43 08:00 08:55 Temp 98.0 98.0 Pulse 80 87 Resp 18 B/P 95/71 120/67 Pulse Ox 97 98 O2 Delivery Nasal Cannula Nasal Cannula Nasal Cannula O2 Flow Rate 2.0 2.0 2.0 05/15/16 05/15/16 05/15/16 08:56 11:00 11:13 Temp 98.2 98.2 Pulse 87 84 Resp 18 B/P 120/67 136/73 Pulse Ox 97 O2 Delivery Nasal Cannula Nasal Cannula O2 Flow Rate 2.0 1.0 Intake and Output 05/14/16 05/14/16 05/15/16 15:00 23:00 07:00 Intake Total 500 ml 0 ml 300 ml Balance 500 ml 0 ml 300 ml ANDREA GARCÍA MD May 15, 2016 12:43
[2016-05-15] MEDS ORDERED: NICOTINE 21MG PATCH. TD PRN (12:45)
[2016-05-15] MEDS ORDERED: FLU VACC QUAD 2016-17 (36MOS+)/PF 0.5 ML SYRINGE. VAX IM ONE (13:00)
--- NOTE | 2016-05-15 13:30 | PDOC ---
PULMONARY PROGRESS NOTES Subjective pt feels better less soa Vitals Vital Signs Date Time Temp Pulse Resp B/P Pulse Ox O2 Delivery O2 Flow Rate FiO2 05/15/16 11:13 Nasal Cannula 1.0 05/15/16 11:00 98.2 84 18 136/73 97 98.2 ROS: No Nausea, No Chest Pain, No Abdominal Pain, No Increase Cough Lungs: Clear Cardiovascular: S1, S2 Abdomen: Soft Neuro Exam: Alert Extremities: No Edema Labs Laboratory Tests Test 05/14/16 06:45 05/14/16 07:41 05/14/16 07:59 05/15/16 06:00 White Blood Count 9.5x10^3/uL (4.0-11.0) 4.8x10^3/uL (4.0-11.0) Red Blood Count 5.08x10^6/uL (3.50-5.40) 4.34x10^6/uL (3.50-5.40) Hemoglobin 15.4g/dL (12.0-15.5) 13.0g/dL (12.0-15.5) Hematocrit 45.4% (36.0-47.0) 39.0% (36.0-47.0) Mean Corpuscular Volume 89fL (79-100) 90fL (79-100) Mean Corpuscular Hemoglobin 30pg (25-35) 30pg (25-35) Mean Corpuscular Hemoglobin Concent 34g/dL (31-37) 34g/dL (31-37) Red Cell Distribution Width 13.2% (11.5-14.5) 13.5% (11.5-14.5) Platelet Count 374x10^3/uL (140-400) 326x10^3/uL (140-400) Neutrophils (%) (Auto) 79% (31-73) 76% (31-73) Lymphocytes (%) (Auto) 11% (24-48) 13% (24-48) Monocytes (%) (Auto) 10% (0-9) 12% (0-9) Eosinophils (%) (Auto) 0% (0-3) 0% (0-3) Basophils (%) (Auto) 1% (0-3) 0% (0-3) Neutrophils # (Auto) 7.5x10^3uL (1.8-7.7) 3.6x10^3uL (1.8-7.7) Lymphocytes # (Auto) 1.0x10^3/uL (1.0-4.8) 0.6x10^3/uL (1.0-4.8) Monocytes # (Auto) 1.0x10^3/uL (0.0-1.1) 0.6x10^3/uL (0.0-1.1) Eosinophils # (Auto) 0.0x10^3/uL (0.0-0.7) 0.0x10^3/uL (0.0-0.7) Basophils # (Auto) 0.0x10^3/uL (0.0-0.2) 0.0x10^3/uL (0.0-0.2) Influenza Type A Antigen Positive (NEGATIVE) Influenza Type B Antigen Negative (NEGATIVE) Sodium Level 138mmol/L (136-145) 142mmol/L (136-145) Potassium Level 3.7mmol/L (3.5-5.1) 4.4mmol/L (3.5-5.1) Chloride Level 100mmol/L (98-107) 106mmol/L (98-107) Carbon Dioxide Level 25mmol/L (21-32) 29mmol/L (21-32) Anion Gap 13 (6-14) 7 (6-14) Blood Urea Nitrogen 21mg/dL (7-20) 13mg/dL (7-20) Creatinine 0.5mg/dL (0.6-1.0) 0.5mg/dL (0.6-1.0) Estimated GFR (Cockcroft-Gault) 123.8 123.8 BUN/Creatinine Ratio 42 (6-20) Glucose Level 128mg/dL (70-99) 115mg/dL (70-99) Calcium Level 8.9mg/dL (8.5-10.1) 8.8mg/dL (8.5-10.1) Total Bilirubin 0.2mg/dL (0.2-1.0) Aspartate Amino Transf (AST/SGOT) 29U/L (15-37) Alanine Aminotransferase (ALT/SGPT) 32U/L (14-59) Alkaline Phosphatase 123U/L (46-116) Troponin I Quantitative < 0.017ng/mL (0.000-0.055) IL-Wks-D-Type Natriuretic Peptide 104pg/mL (0-124) Total Protein 6.7g/dL (6.4-8.2) Albumin 3.6g/dL (3.4-5.0) Albumin/Globulin Ratio 1.2 (1.0-1.7) Laboratory Tests Test 05/15/16 06:00 White Blood Count 4.8x10^3/uL (4.0-11.0) Red Blood Count 4.34x10^6/uL (3.50-5.40) Hemoglobin 13.0g/dL (12.0-15.5) Hematocrit 39.0% (36.0-47.0) Mean Corpuscular Volume 90fL (79-100) Mean Corpuscular Hemoglobin 30pg (25-35) Mean Corpuscular Hemoglobin Concent 34g/dL (31-37) Red Cell Distribution Width 13.5% (11.5-14.5) Platelet Count 326x10^3/uL (140-400) Neutrophils (%) (Auto) 76% (31-73) Lymphocytes (%) (Auto) 13% (24-48) Monocytes (%) (Auto) 12% (0-9) Eosinophils (%) (Auto) 0% (0-3) Basophils (%) (Auto) 0% (0-3) Neutrophils # (Auto) 3.6x10^3uL (1.8-7.7) Lymphocytes # (Auto) 0.6x10^3/uL (1.0-4.8) Monocytes # (Auto) 0.6x10^3/uL (0.0-1.1) Eosinophils # (Auto) 0.0x10^3/uL (0.0-0.7) Basophils # (Auto) 0.0x10^3/uL (0.0-0.2) Sodium Level 142mmol/L (136-145) Potassium Level 4.4mmol/L (3.5-5.1) Chloride Level 106mmol/L (98-107) Carbon Dioxide Level 29mmol/L (21-32) Anion Gap 7 (6-14) Blood Urea Nitrogen 13mg/dL (7-20) Creatinine 0.5mg/dL (0.6-1.0) Estimated GFR (Cockcroft-Gault) 123.8 Glucose Level 115mg/dL (70-99) Calcium Level 8.8mg/dL (8.5-10.1) Medications Active Scripts Medications Dose Route/Sig Days Date Category Tamiflu (Oseltamivir Phosphate) 75 Mg Capsule 1 Cap PO BID 05/14/16 Rx Impression . 1. Acute respiratory failure secondary to acute viral bronchitis. 2. Positive influenza A. 3. Fever and body aches secondary to above. 4. Tobacco dependence. 5. Family history of lung cancer. CT REPORT 1. Calcific plaquing of the aorta and coronary arteries. 2. No CT evidence of pneumonia. 3. Tiny noncalcified right upper lobe pulmonary opacities may be scars, however, given the patient's smoking history, CT follow-up is suggested to exclude a neoplastic etiology. Plan . CONTINUE THE SAME FEELS BETTER FOLLOW UP CT 4-6 MONTHS NEBS 02 SIDNEY BAKER MD May 15, 2016 13:29
[2016-05-15] MEDS: FAMOTIDINE 20 MG TABLET. PO SCH (20:39)
[2016-05-15] MEDS: ENOXAPARIN 30 MG/0.3 ML DISP.SYRIN. SQ SCH (20:40)
[2016-05-15] MEDS: DIPHENHYDRAMINE HCL 25 MG CAPSULE PO PRN (20:42)
[2016-05-16 07:30] VITALS: BP 141/73
[2016-05-16] MEDS: IPRATRPIUM/ALBUTEROL 0.5/2.5MG 3 ML NEBU. NEB SCH ×4 (07:31→20:24)
--- NOTE | 2016-05-16 09:02 | PDOC ---
PULMONARY PROGRESS NOTES Subjective not feeling good today, has sob, cough, sputum, runny nose. Vitals Vital Signs Date Time Temp Pulse Resp B/P Pulse Ox O2 Delivery O2 Flow Rate FiO2 05/16/16 07:33 96 Nasal Cannula 1.0 05/16/16 07:30 98.1 72 17 141/73 98.1 Comments ros as mentioned as above other sys otherwise neg ROS: No Nausea, No Chest Pain, No Abdominal Pain, No Increase Cough HEENT: Other (nc at perrl, throat is clear) Lungs: Wheezing Cardiovascular: S1, S2 Abdomen: Soft Neuro Exam: Alert Extremities: No Edema Labs Laboratory Tests Test 05/15/16 06:00 White Blood Count 4.8x10^3/uL (4.0-11.0) Red Blood Count 4.34x10^6/uL (3.50-5.40) Hemoglobin 13.0g/dL (12.0-15.5) Hematocrit 39.0% (36.0-47.0) Mean Corpuscular Volume 90fL (79-100) Mean Corpuscular Hemoglobin 30pg (25-35) Mean Corpuscular Hemoglobin Concent 34g/dL (31-37) Red Cell Distribution Width 13.5% (11.5-14.5) Platelet Count 326x10^3/uL (140-400) Neutrophils (%) (Auto) 76% (31-73) Lymphocytes (%) (Auto) 13% (24-48) Monocytes (%) (Auto) 12% (0-9) Eosinophils (%) (Auto) 0% (0-3) Basophils (%) (Auto) 0% (0-3) Neutrophils # (Auto) 3.6x10^3uL (1.8-7.7) Lymphocytes # (Auto) 0.6x10^3/uL (1.0-4.8) Monocytes # (Auto) 0.6x10^3/uL (0.0-1.1) Eosinophils # (Auto) 0.0x10^3/uL (0.0-0.7) Basophils # (Auto) 0.0x10^3/uL (0.0-0.2) Sodium Level 142mmol/L (136-145) Potassium Level 4.4mmol/L (3.5-5.1) Chloride Level 106mmol/L (98-107) Carbon Dioxide Level 29mmol/L (21-32) Anion Gap 7 (6-14) Blood Urea Nitrogen 13mg/dL (7-20) Creatinine 0.5mg/dL (0.6-1.0) Estimated GFR (Cockcroft-Gault) 123.8 Glucose Level 115mg/dL (70-99) Calcium Level 8.8mg/dL (8.5-10.1) Medications Active Scripts Medications Dose Route/Sig Days Date Category Tamiflu (Oseltamivir Phosphate) 75 Mg Capsule 1 Cap PO BID 05/14/[address] reviewed, 1. Calcific plaquing of the aorta and coronary arteries. 2. No CT evidence of pneumonia. 3. Tiny noncalcified right upper lobe pulmonary opacities may be scars, however, given the patient's smoking history, CT follow-up is suggested to exclude a neoplastic etiology. Impression . 1. Acute respiratory failure secondary to acute viral bronchitis. 2. Positive influenza A. 3. Fever and body aches secondary to above. 4. Tobacco dependence. 5. Family history of lung cancer. 6. wheezing 7. allergic rhinitis CT REPORT 1. Calcific plaquing of the aorta and coronary arteries. 2. No CT evidence of pneumonia. 3. Tiny noncalcified right upper lobe pulmonary opacities may be scars, however, given the patient's smoking history, CT follow-up is suggested to exclude a neoplastic etiology. Plan . add pulmicort add singulair FOLLOW UP CT in 3 mo NEBS 02 titration dvt and gi prophylaxis discussed w rn, pt ESTEVAN MALHOTRA MD May 16, 2016 09:01
[2016-05-16] MEDS: OSELTAMIVIR 30 MG CAPSULE PO SCH ×2 (10:01→20:13)
[2016-05-16] MEDS: VENLAFAXINE XR 37.5 MG CAP.ER.24H. PO SCH (10:01)
[2016-05-16] MEDS: LISINOPRIL 10 MG TABLET PO SCH (10:02)
[2016-05-16] MEDS: methylPREDNISolone SOD SUCC PF 40 MG/ML VIAL. IV SCH (10:02)
[2016-05-16] MEDS: ACETAMINOPHEN 325 MG TABLET. PO PRN (10:04)
[2016-05-16] MEDS: BUDESONIDE 0.5 MG/2 ML NEBU NEB SCH ×2 (11:28→20:24)
[2016-05-16 11:53] VITALS: BP 135/70
--- NOTE | 2016-05-16 14:26 | PDOC ---
PROGRESS NOTES Chief Complaint Chief Complaint 1. dyspnea 2. acute resp failure with copd and flu 3. flu a 4. COPD exacerbation 5. HTN 6. depression History of Present Illness History of Present Illness was soa this AM, not now She feels emotional, happy we are taking care of her She swears she wont smoker again She appreciates care given here Pulmo has added pulmicort CT chest shows subcm nodule, rpt CTs can recommended 3 mos time given signif smoking hx PLAN: CPM Re ct 3 mos 6MW yani Vitals Vitals Vital Signs Date Time Temp Pulse Resp B/P Pulse Ox O2 Delivery O2 Flow Rate FiO2 05/16/16 11:53 98.6 77 18 135/70 95 Nasal Cannula 2.0 98.6 Physical Exam General: Alert, Oriented X3, Cooperative Heart: Regular rate Lungs: Wheezing Extremities: No clubbing Skin: No rashes Review of Systems Review of Systems soa, no cp, cough, no fevers Assessment and Plan Assessmemt and Plan Problems Medical Problems: (1) COPD exacerbation Status: Acute (2) CVA (cerebral vascular accident) Status: Acute (3) Influenza A Status: Acute Problems: Comment Review of Relevant I have reviewed the following items juliana (where applicable) has been applied. Labs Laboratory Tests Test 05/15/16 06:00 White Blood Count 4.8x10^3/uL (4.0-11.0) Red Blood Count 4.34x10^6/uL (3.50-5.40) Hemoglobin 13.0g/dL (12.0-15.5) Hematocrit 39.0% (36.0-47.0) Mean Corpuscular Volume 90fL (79-100) Mean Corpuscular Hemoglobin 30pg (25-35) Mean Corpuscular Hemoglobin Concent 34g/dL (31-37) Red Cell Distribution Width 13.5% (11.5-14.5) Platelet Count 326x10^3/uL (140-400) Neutrophils (%) (Auto) 76% (31-73) Lymphocytes (%) (Auto) 13% (24-48) Monocytes (%) (Auto) 12% (0-9) Eosinophils (%) (Auto) 0% (0-3) Basophils (%) (Auto) 0% (0-3) Neutrophils # (Auto) 3.6x10^3uL (1.8-7.7) Lymphocytes # (Auto) 0.6x10^3/uL (1.0-4.8) Monocytes # (Auto) 0.6x10^3/uL (0.0-1.1) Eosinophils # (Auto) 0.0x10^3/uL (0.0-0.7) Basophils # (Auto) 0.0x10^3/uL (0.0-0.2) Sodium Level 142mmol/L (136-145) Potassium Level 4.4mmol/L (3.5-5.1) Chloride Level 106mmol/L (98-107) Carbon Dioxide Level 29mmol/L (21-32) Anion Gap 7 (6-14) Blood Urea Nitrogen 13mg/dL (7-20) Creatinine 0.5mg/dL (0.6-1.0) Estimated GFR (Cockcroft-Gault) 123.8 Glucose Level 115mg/dL (70-99) Calcium Level 8.8mg/dL (8.5-10.1) Microbiology 05/14/16 Blood Culture - Preliminary, Resulted NO GROWTH AFTER 2 DAYS Medications Current Medications Sodium Chloride (Iv Sodium Chloride 0.9% 500ml Bag) 500 ml @ 0 mls/hr 1X ONCE IV Last administered on 05/14/16 07:40; Start 05/14/16 at 07:30; Stop at 07:31; Status DC Albuterol/ Ipratropium (Duoneb) 6 ml 1X ONCE NEB Last administered on 07:38; Start 05/14/16 at 07:30; Stop 05/14/16 at 07:31; Status DC Methylprednisolone Sodium Succinate (Solu-Medrol 125mg Vial) 125 mg 1X ONCE IV Last administered on 05/14/16 07:54; Start 05/14/16 at 07:30; Stop 05/14/16 at 07:31; Status DC Levofloxacin (Levaquin) 500 mg 1X ONCE PO Last administered on 05/14/16 07:56 ; Start 05/14/16 at 07:30; Stop 05/14/16 at 07:31; Status DC Ondansetron HCl 4 mg 4 mg PRN Q8HRS PRN IV NAUSEA/VOMITING; Start 05/14/16 at 09:00; Stop 05/14/16 at 16:41; Status DC Sodium Chloride (Iv Sodium Chloride 0.9% 1000ml Bag) 1,000 ml @ 125 mls/hr Q8H IV Last administered on 05/15/16 00:52; Start 05/14/16 at 08:52; Stop at 08:51; Status DC Albuterol/ Ipratropium (Duoneb) 3 ml RTQID NEB Last administered on 05/14/16 15:36; Start 05/14/16 at 12:00; Stop 05/14/16 at 16:41; Status DC Acetaminophen (Tylenol) 650 mg PRN Q6HRS PRN PO MILD PAIN / TEMP Last administered on 05/15/16 08:51; Start 05/14/16 at 16:00; Stop 05/15/16 at 16:38 ; Status DC Lisinopril (Prinivil) 10 mg DAILY PO Last administered on 05/16/16 10:02; Start 05/15/16 at 09:00 Oseltamivir Phosphate (Tamiflu) 30 mg BID PO Last administered on 05/16/16 10: 01; Start 05/14/16 at 21:00; Stop 05/19/16 at 20:59 Venlafaxine HCl (Effexor Xr) 37.5 mg DAILY PO Last administered on 05/16/16 10 :01; Start 05/15/16 at 09:00 Methylprednisolone Sodium Succinate (Solu-Medrol 40mg Vial) 40 mg Q12HR IV Last administered on 05/16/16 10:02; Start 05/14/16 at 21:00 Albuterol/ Ipratropium (Duoneb) 3 ml RTQID NEB Last administered on 05/16/16 11:28; Start 05/14/16 at 20:00 Albuterol Sulfate (Ventolin Neb Soln) 2.5 mg PRN Q4HRS PRN NEB SHORTNESS OF BREATH; Start 05/14/16 at 16:30 Acetaminophen (Tylenol) 650 mg PRN Q6HRS PRN PO MILD PAIN / TEMP Last administered on 05/16/16 10:04; Start 05/14/16 at 16:30 Ondansetron HCl (Zofran) 4 mg PRN Q6HRS PRN IV NAUSEA/VOMITING; Start 05/14/16 at 16:30 Enoxaparin Sodium (Lovenox 40mg Syringe) 30 mg Q24H SQ ; Start 05/14/16 at 16:30 ; Stop 05/14/16 at 16:30; Status DC Famotidine (Pepcid) 20 mg QHS PO Last administered on 05/15/16 20:39; Start at 21:00 Guaifenesin (Robitussin) 200 mg PRN Q4HRS PRN PO COUGH Last administered on 20:16; Start 05/14/16 at 16:30 Enoxaparin Sodium (Lovenox 30mg Syringe) 30 mg Q24H SQ ; Start 05/14/16 at 21:00 Diphenhydramine HCl (Benadryl) 25 mg PRN QHS PRN PO INSOMNIA Last administered on 05/15/16 20:42; Start 05/14/16 at 22:00 Info (Do NOT chart on this placeholder) 1 each PRN 1X PRN MC SEE COMMENTS; Start 05/15/16 at 11:15; Status UNV Influenza Virus Vaccine Quadrival (Fluarix Quad [id number] Syringe) 0.5 ml ONCE ONCE VAX IM ; Start 05/15/16 at 13:00; Stop 05/15/16 at 13:01; Status DC Nicotine (Nicoderm Cq 21mg) 1 patch PRN DAILY PRN TD SMOKING CESSATION; Start 05/15/16 at 12:45 Budesonide (Pulmicort) 0.5 mg RTBID NEB Last administered on 05/16/16 11:28; Start 05/16/16 at 09:00 Montelukast Sodium (Singulair) 10 mg QHS PO ; Start 05/16/16 at 21:00 Active Scripts Active Tamiflu (Oseltamivir Phosphate) 75 Mg Capsule 1 Cap PO BID Reported Lisinopril 10 Mg Tablet Unknown Dose PO DAILY Effexor Xr (Venlafaxine Hcl) 37.5 Mg Cap.er.24h Unknown Dose PO DAILY Vitals/I & O Vital Sign - Last 24 Hours 05/15/16 05/15/16 05/15/16 05/15/16 15:00 15:08 19:00 20:00 Temp 98.0 97.7 98.0 97.7 Pulse 84 83 Resp 18 17 B/P 125/68 116/46 Pulse Ox 97 96 O2 Delivery Nasal Cannula Nasal Cannula Nasal Cannula Nasal Cannula O2 Flow Rate 2.0 1.0 2.0 2.0 05/15/16 05/15/16 205/16/16 20:31 23:00 07:30 07:33 Temp 97.9 98.1 97.9 98.1 Pulse 81 72 Resp 17 17 B/P 118/51 141/73 Pulse Ox 97 96 96 96 O2 Delivery Nasal Cannula Nasal Cannula Nasal Cannula Nasal Cannula O2 Flow Rate 1.0 2.0 2.0 1.0 05/16/16 05/16/16 05/16/16 05/16/16 08:00 10:02 11:29 11:53 Temp 98.6 98.6 Pulse 72 77 Resp 18 B/P 141/73 135/70 Pulse Ox 95 O2 Delivery Nasal Cannula Nasal Cannula Nasal Cannula O2 Flow Rate 2.0 1.0 2.0 Intake and Output 05/15/16 05/15/16 05/16/16 15:00 23:00 07:00 Intake Total 650 ml 0 ml Output Total 1550 ml Balance -900 ml 0 ml ANDREA GARCÍA MD May 16, 2016 14:25
[2016-05-16 15:17] VITALS: BP 127/62
[2016-05-16 19:00] VITALS: BP 145/56
[2016-05-16] MEDS: FAMOTIDINE 20 MG TABLET. PO SCH (20:13)
[2016-05-16] MEDS: DIPHENHYDRAMINE HCL 25 MG CAPSULE PO PRN (20:13)
[2016-05-16] MEDS: MONTELUKAST SODIUM 10 MG TABLET. PO SCH (20:13)
[2016-05-16 23:00] VITALS: BP 124/59
[2016-05-17 03:00] VITALS: BP 128/81
[2016-05-17 07:00] VITALS: BP 132/67
[2016-05-17] MEDS: BUDESONIDE 0.5 MG/2 ML NEBU NEB SCH ×2 (07:30→19:12)
[2016-05-17] MEDS: IPRATRPIUM/ALBUTEROL 0.5/2.5MG 3 ML NEBU. NEB SCH ×4 (07:30→19:12)
[2016-05-17] MEDS: VENLAFAXINE XR 37.5 MG CAP.ER.24H. PO SCH (08:33)
[2016-05-17] MEDS: OSELTAMIVIR 30 MG CAPSULE PO SCH ×2 (08:34→21:22)
[2016-05-17] MEDS: LISINOPRIL 10 MG TABLET PO SCH (08:34)
[2016-05-17] MEDS: GUAIFENESIN 200 MG/10 ML LIQUID. PO PRN ×2 (08:38→15:53)
[2016-05-17] MEDS: PREDNISONE 20 MG TABLET PO SCH (08:49)
--- NOTE | 2016-05-17 09:25 | PDOC ---
PULMONARY PROGRESS NOTES Subjective feels better, has sob better, has cough, sputum, runny nose. Vitals Vital Signs Date Time Temp Pulse Resp B/P Pulse Ox O2 Delivery O2 Flow Rate FiO2 05/17/16 08:34 84 132/67 05/17/16 07:32 97 Nasal Cannula 1.0 05/17/16 07:00 96.1 18 96.1 Comments ros as mentioned as above other sys otherwise neg ROS: No Nausea, No Chest Pain, No Abdominal Pain, No Increase Cough General: Alert, Oriented X4 HEENT: Other (nc at perrl, throat is clear) Lungs: Other (better air movement, less wheezy) Cardiovascular: S1, S2 Abdomen: Soft, Non-tender Neuro Exam: Alert, Oriented Extremities: No Edema Skin: Warm Medications Active Scripts Medications Dose Route/Sig Days Date Category Tamiflu (Oseltamivir Phosphate) 75 Mg Capsule 1 Cap PO BID 05/14/[address] reviewed, 1. Calcific plaquing of the aorta and coronary arteries. 2. No CT evidence of pneumonia. 3. Tiny noncalcified right upper lobe pulmonary opacities may be scars, however, given the patient's smoking history, CT follow-up is suggested to exclude a neoplastic etiology. Impression . 1. Acute respiratory failure secondary to acute viral bronchitis. 2. Positive influenza A. 3. Fever and body aches secondary to above. 4. Tobacco dependence. 5. Family history of lung cancer. 6. wheezing 7. allergic rhinitis Plan . plan: pulmicort singulair FOLLOW UP CT in 3 mo NEBS 02 titration prednisone dvt and gi prophylaxis discussed w rn, pt ESTEVAN MALHOTRA MD May 17, 2016 09:25
[2016-05-17 11:00] VITALS: BP 140/80
--- NOTE | 2016-05-17 11:03 | PDOC ---
PROGRESS NOTES Chief Complaint Chief Complaint 1. dyspnea 2. acute resp failure with copd and flu 3. flu a 4. COPD exacerbation 5. HTN 6. 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 PLAN: Shift IV solu to pred Will need pulmo and psych ff up as OP Will dc yani after pulmo rounds to set up ff up appt and give final recs time in room 35 mins, counselling etc No home O2 needs so far Vitals Vitals Vital Signs Date Time Temp Pulse Resp B/P Pulse Ox O2 Delivery O2 Flow Rate FiO2 05/17/16 08:34 84 132/67 05/17/16 07:32 97 Nasal Cannula 1.0 05/17/16 07:00 96.1 18 96.1 Physical Exam General: Alert, Oriented X3, Cooperative Heart: Regular rate Lungs: Other (better air movement, less wheezy) Extremities: No clubbing Skin: No rashes Review of Systems Review of Systems SOA, cough, runny nose, no cp, no abd pain Assessment and Plan Assessmemt and Plan Problems Medical Problems: (1) COPD exacerbation Status: Acute (2) CVA (cerebral vascular accident) Status: Acute (3) Influenza A Status: Acute Problems: Comment Review of Relevant I have reviewed the following items juliana (where applicable) has been applied. Labs Microbiology 05/14/16 Blood Culture - Preliminary, Resulted NO GROWTH AFTER 3 DAYS Medications Current Medications Sodium Chloride (Iv Sodium Chloride 0.9% 500ml Bag) 500 ml @ 0 mls/hr 1X ONCE IV Last administered on 05/14/16 07:40; Start 05/14/16 at 07:30; Stop at 07:31; Status DC Albuterol/ Ipratropium (Duoneb) 6 ml 1X ONCE NEB Last administered on 07:38; Start 05/14/16 at 07:30; Stop 05/14/16 at 07:31; Status DC Methylprednisolone Sodium Succinate (Solu-Medrol 125mg Vial) 125 mg 1X ONCE IV Last administered on 05/14/16 07:54; Start 05/14/16 at 07:30; Stop 05/14/16 at 07:31; Status DC Levofloxacin (Levaquin) 500 mg 1X ONCE PO Last administered on 05/14/16 07:56 ; Start 05/14/16 at 07:30; Stop 05/14/16 at 07:31; Status DC Ondansetron HCl 4 mg 4 mg PRN Q8HRS PRN IV NAUSEA/VOMITING; Start 05/14/16 at 09:00; Stop 05/14/16 at 16:41; Status DC Sodium Chloride (Iv Sodium Chloride 0.9% 1000ml Bag) 1,000 ml @ 125 mls/hr Q8H IV Last administered on 05/15/16 00:52; Start 05/14/16 at 08:52; Stop at 08:51; Status DC Albuterol/ Ipratropium (Duoneb) 3 ml RTQID NEB Last administered on 05/14/16 15:36; Start 05/14/16 at 12:00; Stop 05/14/16 at 16:41; Status DC Acetaminophen (Tylenol) 650 mg PRN Q6HRS PRN PO MILD PAIN / TEMP Last administered on 05/15/16 08:51; Start 05/14/16 at 16:00; Stop 05/15/16 at 16:38 ; Status DC Lisinopril (Prinivil) 10 mg DAILY PO Last administered on 05/17/16 08:34; Start 05/15/16 at 09:00 Oseltamivir Phosphate (Tamiflu) 30 mg BID PO Last administered on 05/17/16 08: 34; Start 05/14/16 at 21:00; Stop 05/19/16 at 20:59 Venlafaxine HCl (Effexor Xr) 37.5 mg DAILY PO Last administered on 05/17/16 08 :33; Start 05/15/16 at 09:00 Methylprednisolone Sodium Succinate (Solu-Medrol 40mg Vial) 40 mg Q12HR IV Last administered on 05/16/16 10:02; Start 05/14/16 at 21:00; Stop 05/16/16 at 18:07; Status DC Albuterol/ Ipratropium (Duoneb) 3 ml RTQID NEB Last administered on 05/17/16 07:30; Start 05/14/16 at 20:00 Albuterol Sulfate (Ventolin Neb Soln) 2.5 mg PRN Q4HRS PRN NEB SHORTNESS OF BREATH; Start 05/14/16 at 16:30 Acetaminophen (Tylenol) 650 mg PRN Q6HRS PRN PO MILD PAIN / TEMP Last administered on 05/16/16 10:04; Start 05/14/16 at 16:30 Ondansetron HCl (Zofran) 4 mg PRN Q6HRS PRN IV NAUSEA/VOMITING; Start 05/14/16 at 16:30; Stop 05/16/16 at 18:07; Status DC Enoxaparin Sodium (Lovenox 40mg Syringe) 30 mg Q24H SQ ; Start 05/14/16 at 16:30 ; Stop 05/14/16 at 16:30; Status DC Famotidine (Pepcid) 20 mg QHS PO Last administered on 05/16/16 20:13; Start at 21:00 Guaifenesin (Robitussin) 200 mg PRN Q4HRS PRN PO COUGH Last administered on 08:38; Start 05/14/16 at 16:30 Enoxaparin Sodium (Lovenox 30mg Syringe) 30 mg Q24H SQ ; Start 05/14/16 at 21:00 ; Stop 05/16/16 at 18:07; Status DC Diphenhydramine HCl (Benadryl) 25 mg PRN QHS PRN PO INSOMNIA Last administered on 05/16/16 20:13; Start 05/14/16 at 22:00 Info (Do NOT chart on this placeholder) 1 each PRN 1X PRN MC SEE COMMENTS; Start 05/15/16 at 11:15; Status UNV Influenza Virus Vaccine Quadrival (Fluarix Quad [id number] Syringe) 0.5 ml ONCE ONCE VAX IM ; Start 05/15/16 at 13:00; Stop 05/15/16 at 13:01; Status DC Nicotine (Nicoderm Cq 21mg) 1 patch PRN DAILY PRN TD SMOKING CESSATION; Start 05/15/16 at 12:45 Budesonide (Pulmicort) 0.5 mg RTBID NEB Last administered on 05/17/16 07:30; Start 05/16/16 at 09:00 Montelukast Sodium (Singulair) 10 mg QHS PO Last administered on 05/16/16 20: 13; Start 05/16/16 at 21:00 Prednisone (Prednisone) 60 mg DAILY PO Last administered on 05/17/16 08:49; Start 05/17/16 at 09:00 Active Scripts Active Tamiflu (Oseltamivir Phosphate) 75 Mg Capsule 1 Cap PO BID Reported Lisinopril 10 Mg Tablet Unknown Dose PO DAILY Effexor Xr (Venlafaxine Hcl) 37.5 Mg Cap.er.24h Unknown Dose PO DAILY Vitals/I & O Vital Sign - Last 24 Hours 05/16/16 05/16/16 05/16/16 05/16/16 11:29 11:53 15:17 16:34 Temp 98.6 97.1 98.6 97.1 Pulse 77 89 Resp 18 18 B/P 135/70 127/62 Pulse Ox 95 93 O2 Delivery Nasal Cannula Nasal Cannula Nasal Cannula Nasal Cannula O2 Flow Rate 1.0 2.0 2.0 1.0 05/16/16 05/16/16 05/16/16 05/16/16 19:00 20:00 20:24 23:00 Temp 97.7 98.1 97.7 98.1 Pulse 76 71 Resp 18 18 B/P 145/56 124/59 Pulse Ox 95 93 O2 Delivery Nasal Cannula Nasal Cannula Nasal Cannula Nasal Cannula O2 Flow Rate 2.0 2.0 2.0 2.0 05/17/16 05/17/16 05/17/16 05/17/16 03:00 07:00 07:32 07:32 Temp 97.9 96.1 97.9 96.1 Pulse 70 79 Resp 18 18 B/P 128/81 132/67 Pulse Ox 93 95 97 97 O2 Delivery Nasal Cannula Nasal Cannula Nasal Cannula Nasal Cannula O2 Flow Rate 2.0 2.0 1.0 1.0 05/17/16 08:34 Pulse 84 B/P 132/67 Intake and Output 05/16/16 05/16/16 05/17/16 15:00 23:00 07:00 Intake Total 1050 ml 100 ml Output Total 950 ml 0 ml Balance 100 ml 100 ml TERMULO,ANDREA Y MD May 17, 2016 11:03
[2016-05-17 15:00] VITALS: BP 134/60
[2016-05-17 19:00] VITALS: BP 115/72
[2016-05-17] MEDS: MONTELUKAST SODIUM 10 MG TABLET. PO SCH (21:21)
[2016-05-17] MEDS: FAMOTIDINE 20 MG TABLET. PO SCH (21:22)
[2016-05-17] MEDS: DIPHENHYDRAMINE HCL 25 MG CAPSULE PO PRN (21:24)
[2016-05-17 23:00] VITALS: BP 118/82
[2016-05-18 03:00] VITALS: BP 129/75
[2016-05-18 07:00] VITALS: BP 127/76
[2016-05-18] MEDS: IPRATRPIUM/ALBUTEROL 0.5/2.5MG 3 ML NEBU. NEB SCH ×2 (07:27→11:53)
[2016-05-18] MEDS: BUDESONIDE 0.5 MG/2 ML NEBU NEB SCH (07:27)
[2016-05-18] MEDS: OSELTAMIVIR 30 MG CAPSULE PO SCH (08:15)
[2016-05-18] MEDS: VENLAFAXINE XR 37.5 MG CAP.ER.24H. PO SCH (08:15)
[2016-05-18] MEDS: PREDNISONE 20 MG TABLET PO SCH (08:15)
[2016-05-18] MEDS: LISINOPRIL 10 MG TABLET PO SCH (08:15)
[2016-05-18 10:58] VITALS: BP 136/72
[2016-05-18] MEDS ORDERED: GUAI118L3 PO (12:12)
[2016-05-18] MEDS ORDERED: MONT10TA9 PO (12:12)
--- NOTE | 2016-05-18 12:23 | PDOC3 ---
Discharge Summary Visit Information Date of Admission: May 14, 2016 Date of Discharge: May 18, 2016 Admitting Diagnosis Comment: 1. dyspnea 2. acute resp failure with copd and flu 3. flu a 4. COPD exacerbation 5. HTN 6. depression NOS Final Diagnosis Problems Medical Problems: (1) COPD exacerbation Status: Acute (2) CVA (cerebral vascular accident) Status: Acute (3) Influenza A Status: Acute Brief Hospital Course Allergies Allergies Coded Allergies Type Severity Reaction Last Updated Verified Penicillins Allergy Severe 05/14/16 Yes morphine Adverse Reaction Intermediate vomiting 05/14/16 Yes Vital Signs Vital Signs Date Time Temp Pulse Resp B/P Pulse Ox O2 Delivery O2 Flow Rate FiO2 05/18/16 11:54 Room Air 05/18/16 10:58 98.2 89 16 136/72 94 98.2 05/17/16 15:00 2.0 Brief Hospital Course Ms. Chang is a 66 old female smoker, admitetd for 5 nights bec of tight air enrty, wheezy, 6mW done no need for O2, co managed with pulmo, Very depressed bec of loved ones lost recently x 3 (in 18 mos),. Dc on PO singulair, pulmicort, steroids, nebs and cough med LOts of counselling 30 mins alone in room Pt seen and examined dc home Discharge Information Condition at Discharge: Improved, Stable Follow Up: Weeks (pulmo) Disposition/Orders: D/C to Home Scheduled Lisinopril (Lisinopril) Unknown Dose PO DAILY (Reported) Oseltamivir Phosphate (Tamiflu) 1 CAP PO BID Venlafaxine Hcl (Effexor Xr) Unknown Dose PO DAILY (Reported) ANDREA GARCÍA MD May 18, 2016 12:23
== END 2016-05-18 14:36 | disposition home or self-care (01) | DRG 193 ==
LOC: ER 06:35 → ED HOLD 08:55 → 6 SOUTH 13:15
PROVIDERS: ADMIT Internal Medicine; ATTEND Internal Medicine
DX: J10.1 Influenza due to other identified influenza virus with other respiratory manifestations (principal); J96.01 Acute respiratory failure with hypoxia; J44.0 Chronic obstructive pulmonary disease with (acute) lower respiratory infection; J44.1 Chronic obstructive pulmonary disease with (acute) exacerbation; R65.10 Systemic inflammatory response syndrome (SIRS) of non-infectious origin without acute organ dysfunction; F32.9 Major depressive disorder, single episode, unspecified; F17.200 Nicotine dependence, unspecified, uncomplicated; I10 Essential (primary) hypertension; J20.8 Acute bronchitis due to other specified organisms; J30.9 Allergic rhinitis, unspecified; Z80.1 Family history of malignant neoplasm of trachea, bronchus and lung; Z90.49 Acquired absence of other specified parts of digestive tract; Z88.5 Allergy status to narcotic agent; Z88.0 Allergy status to penicillin; Z90.710 Acquired absence of both cervix and uterus; Z90.721 Acquired absence of ovaries, unilateral
CPT/HCPCS: 36415; 71010; 71250; 80048; 80053; 83880; 84484; 85027; 87040; 87804; 93005; 94250; 94620; 94640; 94760; 96361; 96374; 99406; J2920; J2930; J7030; J7040; J7512; J7620; Q0163; 99285-25

== ENCOUNTER → 2016-07-10 | Outpatient (CLI) | payer OTHER ==
[~2016-07-10] MED LIST: GUAI118L3 PO; LISI10TA2 PO; MONT10TA9 PO; OSEL75CA PO; VENL37.5 PO
--- NOTE | 2016-07-10 12:44 | RAD ---
CT of the chest without contrast, 07/10/2016: History: Follow-up right upper lobe nodule Noncontrast scans were obtained as requested. Comparison is made to a study from 05/15/2016. There is a 5 mm noncalcified pulmonary nodule in the medial aspect of the right upper lobe as seen on image 122 of series #3. It measured 4 mm on the previous study, however, that slight discrepancy may be on a technical basis considering the thin reconstructions which were produced on today's study. A tiny 2 mm nodule seen laterally in the right upper lobe on the previous study is unchanged. It is currently visualized on image 77 of series #3. There are a few scattered linear parenchymal opacities in both lungs compatible with scars. A couple of tiny perifissural opacities have a benign appearance. No new pulmonary nodule or significant consolidation is seen. There is no evidence of pleural fluid. There is calcific plaquing of the thoracic aorta and its branches without evidence of aneurysm. Several scattered coronary artery calcifications are noted. No mediastinal adenopathy is detected. IMPRESSION: 1. Equivocal slight interval increase in size of a right upper lobe pulmonary nodule, likely due to technical differences. Further CT surveillance is suggested. 2. No new chest abnormality is detected. PQRS Compliance Statement: One or more of the following individualized dose reduction techniques were utilized for this examination: 1. Automated exposure control 2. Adjustment of the mA and/or kV according to patient size 3. Use of iterative reconstruction technique
== END | disposition home or self-care (01) ==
LOC: CT 09:10
PROVIDERS: ATTEND Internal Medicine Pulmonary Disease
DX: R91.1 Solitary pulmonary nodule (principal)
CPT/HCPCS: 71250